=== PATIENT | female | born 1980 | race Caucasian/White ===

== ENCOUNTER 2016-06-06 22:20 | Emergency (ER) | payer MEDICAID, OTHER ==
[~2016-06-06] VITALS: Ht 165.1 cm; Wt 136.4 kg
[~2016-06-06 22:20] MED LIST: ARIP10TA14 PO; BUPR100SR PO; FISH1CAP49 PO; TOPI100 PO; TRI115O TP
[2016-06-06 22:38] LABS: BASOPHILS % (AUTO) 0.1 % (0.0-2.0); EOSINOPHILS % (AUTO) 2.1 % (1.0-6.0); HEMOGLOBIN 13.2 g/dL (12.0-16.0); LYMPHOCYTES # (AUTO) 2.3 K/uL (1.0-4.8); LYMPHOCYTES % (AUTO) 20.6 % (22.0-44.0); MEAN CORPUSCULAR HEMOGLOBIN 26.6 pg (26.0-34.0); MEAN CORPUSCULAR HGB CONC 32.3 G/dL (31.0-37.0); MEAN CORPUSCULAR VOLUME 82 fL (80-100); MONOCYTES # (AUTO) 0.6 K/uL (0.1-1.0); MONOCYTES % (AUTO) 5.3 % (2.0-9.0); NEUTROPHILS # (AUTO) 8.2 K/uL (1.8-7.7); NEUTROPHILS % (AUTO) 71.9 % (40.0-70.0); PLATELET COUNT (AUTO) 359 K/uL (150-450); RED BLOOD CELL COUNT(AUTO) 4.97 MIL/uL (4.00-5.20); RED CELL DISTRIBUTION WIDTH 15.2 % (11.5-14.5); WHITE BLOOD COUNT (AUTO) 11.3 K/uL (4.5-11.0)
[2016-06-06 22:45] LABS: ANION GAP 12 mmol/L (8-16); CALCIUM, TOTAL 8.8 mg/dL (8.8-10.5); CARBON DIOXIDE 25 mmol/L (22-29); CHLORIDE 104 mmol/L (98-107); CREATININE 0.97 mg/dL (0.60-1.30); GLOMERULAR FILTR. RATE CALC > 60 mL/min (>60); POTASSIUM 3.8 mmol/L (3.5-5.1); SODIUM SERUM 141 mmol/L (136-145); UREA NITROGEN, BLOOD 12 mg/dL (7-18)
[2016-06-06 22:50] LABS: ALANINE AMINOTRANSFERASE 26 U/L (12-78); ALBUMIN 3.7 g/dL (3.4-5.0); ASPARTATE AMINOTRANSFERASE 18 U/L (15-37); BILIRUBIN,TOTAL 0.4 mg/dL (0.1-1.0)
[2016-06-06 22:57] LABS: GLUCOSE,POINT OF CARE 155 MG/DL (70-110)
[2016-06-07] MEDS ORDERED: LORazepam 2 MG TABLET PO ONE (00:15)
[2016-06-07 00:25] VITALS: BP 142/73
[2016-09-13] MEDS ORDERED: HC530C TP (09:02)
[2016-09-13] MEDS ORDERED: METF500T4 PO (09:02)
[2016-09-13] MEDS ORDERED: [UNRECOGNIZED DRUG - CODE] TP (09:02)
[2016-09-13] MEDS ORDERED: NYST15CR2 TP (09:02)
[2016-09-13] MEDS ORDERED: VITAD1000 PO (09:02)
== END 2016-06-07 00:28 | disposition home or self-care (01) ==
LOC: EEVIPCON 22:20 → EMS 22:23
DX: F41.9 Anxiety disorder, unspecified (principal); F25.9 Schizoaffective disorder, unspecified; E78.00 Pure hypercholesterolemia, unspecified; I10 Essential (primary) hypertension
CPT/HCPCS: 36415; 80053; 80307; 82962; 84703; 85025; 99284; G0480

== ENCOUNTER 2016-06-11 09:26 | Inpatient (IN) | payer MEDICAID, OTHER ==
[~2016-06-11] VITALS: Ht 165.1 cm; Wt 157.4 kg
[2016-06-11] MEDS ORDERED: ZOLPIDEM TARTRATE 10 MG TABLET PO PRN (12:00)
[2016-06-11] MEDS ORDERED: HALOPERIDOL 5 MG TABLET PO PRN (12:00)
[2016-06-11 13:25] VITALS: BP_SYST 145
[2016-06-11 16:09] VITALS: BP 131/86
[2016-06-11 16:10] VITALS: BP 131/86
[2016-06-11] MEDS: TOPIRAMATE 100 MG TABLET PO SCH (17:10)
[2016-06-11] MEDS: TRIAMCINOLONE 0.1% 15 GM CREAM TP SCH (17:11)
[2016-06-12 01:21] VITALS: BP 138/73
[2016-06-12] MEDS: BuPROPion HCL 100 MG SR TABLET PO SCH (08:40)
[2016-06-12] MEDS: ARIPiprazole 10 MG TABLET PO SCH (08:40)
[2016-06-12] MEDS: TOPIRAMATE 100 MG TABLET PO SCH ×2 (08:40→16:16)
[2016-06-12] MEDS: TRIAMCINOLONE 0.1% 15 GM CREAM TP SCH (08:40)
[2016-06-12 08:50] VITALS: BP 115/72
[2016-06-12 08:53] LABS: BASOPHILS % (AUTO) 0.3 % (0.0-2.0); EOSINOPHILS % (AUTO) 3.4 % (1.0-6.0); HEMATOCRIT 39.9 % (36-46); HEMOGLOBIN 12.7 g/dL (12.0-16.0); LYMPHOCYTES # (AUTO) 1.7 K/uL (1.0-4.8); LYMPHOCYTES % (AUTO) 20.3 % (22.0-44.0); MEAN CORPUSCULAR HEMOGLOBIN 26.5 pg (26.0-34.0); MEAN CORPUSCULAR HGB CONC 31.8 G/dL (31.0-37.0); MEAN CORPUSCULAR VOLUME 83 fL (80-100); MONOCYTES # (AUTO) 0.5 K/uL (0.1-1.0); MONOCYTES % (AUTO) 5.4 % (2.0-9.0); NEUTROPHILS % (AUTO) 70.6 % (40.0-70.0); PLATELET COUNT (AUTO) 285 K/uL (150-450); RED CELL DISTRIBUTION WIDTH 15.2 % (11.5-14.5); WHITE BLOOD COUNT (AUTO) 8.5 K/uL (4.5-11.0)
[2016-06-12] MEDS ORDERED: IBUPROFEN 600 MG TABLET PO PRN (09:00)
[2016-06-12] MEDS ORDERED: BACITRACIN 28.4 GM OINTMENT TP PRN (09:00)
[2016-06-12] MEDS ORDERED: ONDANSETRON HCL 4 MG TABLET PO PRN (09:00)
[2016-06-12] MEDS: CLOBETASOL 0.05% 15 GM CREAM TP SCH ×2 (09:00→16:16)
[2016-06-12] MEDS ORDERED: CloNIDine HCL 0.1 MG TABLET PO PRN (09:00)
[2016-06-12] MEDS ORDERED: PETROLATUM,WHITE 71 GM JELLY TP PRN (09:00)
[2016-06-12] MEDS ORDERED: MAGNESIUM HYDROXIDE SUSPENSION 30 ML UDCUP PO PRN (09:00)
[2016-06-12] MEDS ORDERED: BENZOCAINE/MENTHOL LOZENGE MM PRN (09:00)
[2016-06-12] MEDS ORDERED: ALBUTEROL SULFATE HFA 90 MCG/PUFF 8 GM INHALER IH PRN (09:00)
[2016-06-12] MEDS ORDERED: ACETAMINOPHEN 325 MG TABLET PO PRN (09:00)
[2016-06-12] MEDS ORDERED: LOPERAMIDE HCL 2 MG CAPSULE PO PRN (09:00)
[2016-06-12] MEDS ORDERED: MAG HYDROX/AL HYDROX/SIMETH ES 30 ML SUSPENSION UDCUP PO PRN (09:00)
[2016-06-12 09:32] LABS: ALANINE AMINOTRANSFERASE 22 U/L (12-78); ALBUMIN 3.4 g/dL (3.4-5.0); ANION GAP 10 mmol/L (8-16); ASPARTATE AMINOTRANSFERASE 15 U/L (15-37); BILIRUBIN,TOTAL 0.3 mg/dL (0.1-1.0); CALCIUM, TOTAL 8.6 mg/dL (8.8-10.5); CARBON DIOXIDE 26 mmol/L (22-29); CHLORIDE 104 mmol/L (98-107); CHOL/HDL RATIO 3.8 (3.9-5.7); CREATININE 0.72 mg/dL (0.60-1.30); GLOMERULAR FILTR. RATE CALC > 60 mL/min (>60); POTASSIUM 4.2 mmol/L (3.5-5.1); SODIUM SERUM 140 mmol/L (136-145); THYROID STIMULATING HORMONE 2.87 uIU/mL (0.36-3.74); TOTAL PROTEIN, SERUM 6.9 g/dL (6.4-8.2); UREA NITROGEN, BLOOD 9 mg/dL (7-18)
[2016-06-12] MEDS: FISH OIL/OMEGA-3 FATTY ACIDS 500 MG CAPSULE PO SCH (10:42)
[2016-06-12 16:14] VITALS: BP 141/83
[2016-06-12] MEDS: LORazepam 2 MG TABLET PO PRN (18:36)
[2016-06-13 00:19] VITALS: BP 140/88
[2016-06-13 08:14] VITALS: BP 137/87
[2016-06-13] MEDS: ARIPiprazole 10 MG TABLET PO SCH (08:29)
[2016-06-13] MEDS: BuPROPion HCL 100 MG SR TABLET PO SCH (08:29)
[2016-06-13] MEDS: FISH OIL/OMEGA-3 FATTY ACIDS 500 MG CAPSULE PO SCH (08:29)
[2016-06-13] MEDS: TOPIRAMATE 100 MG TABLET PO SCH ×2 (08:29→16:24)
[2016-06-13] MEDS: CLOBETASOL 0.05% 15 GM CREAM TP SCH ×2 (08:30→16:25)
[2016-06-13 16:04] VITALS: BP 157/103
[2016-06-14 06:15] VITALS: BP 130/89
[2016-06-14] MEDS: CLOBETASOL 0.05% 15 GM CREAM TP SCH ×2 (08:52→16:19)
[2016-06-14] MEDS: ARIPiprazole 10 MG TABLET PO SCH (08:52)
[2016-06-14] MEDS: TOPIRAMATE 100 MG TABLET PO SCH ×2 (08:52→16:02)
[2016-06-14] MEDS: FISH OIL/OMEGA-3 FATTY ACIDS 500 MG CAPSULE PO SCH (08:52)
[2016-06-14] MEDS: BuPROPion HCL 100 MG SR TABLET PO SCH (08:52)
[2016-06-14 10:03] VITALS: BP 136/88
[2016-06-14 16:06] VITALS: BP 135/78
[2016-06-15 00:28] VITALS: BP 130/68
[2016-06-15] MEDS: FISH OIL/OMEGA-3 FATTY ACIDS 500 MG CAPSULE PO SCH (08:21)
[2016-06-15] MEDS: TOPIRAMATE 100 MG TABLET PO SCH ×2 (08:21→16:04)
[2016-06-15] MEDS: BuPROPion HCL 100 MG SR TABLET PO SCH (08:21)
[2016-06-15] MEDS: CHOLECALCIFEROL (VIT D3) 1,000 UNITS TABLET PO SCH (08:21)
[2016-06-15] MEDS: ARIPiprazole 10 MG TABLET PO SCH (08:21)
[2016-06-15] MEDS: CLOBETASOL 0.05% 15 GM CREAM TP SCH ×2 (08:22→16:04)
[2016-06-15 08:32] VITALS: BP 149/84
[2016-06-15 19:41] VITALS: BP 140/80
[2016-06-16] MEDS: LORazepam 2 MG TABLET PO PRN (01:30)
[2016-06-16 01:31] VITALS: BP 136/89
[2016-06-16 08:06] VITALS: BP 135/72
[2016-06-16] MEDS: FISH OIL/OMEGA-3 FATTY ACIDS 500 MG CAPSULE PO SCH (08:32)
[2016-06-16] MEDS: BuPROPion HCL 100 MG SR TABLET PO SCH (08:32)
[2016-06-16] MEDS: CHOLECALCIFEROL (VIT D3) 1,000 UNITS TABLET PO SCH (08:32)
[2016-06-16] MEDS: ARIPiprazole 10 MG TABLET PO SCH (08:32)
[2016-06-16] MEDS: TOPIRAMATE 100 MG TABLET PO SCH (08:33)
[2016-06-16] MEDS: CLOBETASOL 0.05% 15 GM CREAM TP SCH (08:34)
[2016-06-16] MEDS ORDERED: TEMO15O TP (09:44)
== END 2016-06-16 12:10 | disposition home or self-care (01) | DRG 750 ==
LOC: B2S 11:50 → EDSTATUS 11:57
PROVIDERS: ADMIT Psychiatry & Neurology Psychiatry; ATTEND Psychiatry & Neurology Psychiatry
DX: F20.0 Paranoid schizophrenia (principal); Z68.43 Body mass index [BMI] 50.0-59.9, adult; I10 Essential (primary) hypertension; F25.9 Schizoaffective disorder, unspecified; E66.01 Morbid (severe) obesity due to excess calories; E58 Dietary calcium deficiency; E78.1 Pure hyperglyceridemia; K21.9 Gastro-esophageal reflux disease without esophagitis; K59.00 Constipation, unspecified; L20.9 Atopic dermatitis, unspecified; E78.5 Hyperlipidemia, unspecified; Z79.899 Other long term (current) drug therapy
CPT/HCPCS: 82306; 84439; 84443

== ENCOUNTER 2016-06-28 08:28 | Inpatient (IN) | payer MEDICAID ==
[~2016-06-28] VITALS: Ht 170.2 cm; Wt 152.3 kg
[~2016-06-28 08:28] MED LIST changes: +TEMO15O TP; -TRI115O TP
[2016-06-28 09:00] VITALS: BP 119/85
[2016-06-28] MEDS ORDERED: HALOPERIDOL 5 MG TABLET PO PRN (09:15)
[2016-06-28] MEDS ORDERED: ZOLPIDEM TARTRATE 10 MG TABLET PO PRN (09:15)
[2016-06-28 10:01] VITALS: BP 163/92
[2016-06-28] MEDS: LORazepam 2 MG TABLET PO PRN (10:54)
[2016-06-28 11:16] VITALS: BP 129/77
[2016-06-28 11:56] LABS: GLUCOSE,POINT OF CARE 146 MG/DL (70-110)
[2016-06-28 16:00] VITALS: BP 143/78
[2016-06-28] MEDS: CLOBETASOL 0.05% 15 GM OINTMENT TP SCH (16:33)
[2016-06-29 08:45] LABS: BASOPHILS % (AUTO) 0.2 % (0.0-2.0); EOSINOPHILS % (AUTO) 2.4 % (1.0-6.0); HEMATOCRIT 39.5 % (36-46); HEMOGLOBIN 12.6 g/dL (12.0-16.0); LYMPHOCYTES # (AUTO) 1.6 K/uL (1.0-4.8); LYMPHOCYTES % (AUTO) 15.8 % (22.0-44.0); MEAN CORPUSCULAR HEMOGLOBIN 26.5 pg (26.0-34.0); MEAN CORPUSCULAR HGB CONC 31.9 G/dL (31.0-37.0); MEAN CORPUSCULAR VOLUME 83 fL (80-100); MONOCYTES # (AUTO) 0.5 K/uL (0.1-1.0); MONOCYTES % (AUTO) 4.5 % (2.0-9.0); NEUTROPHILS # (AUTO) 7.8 K/uL (1.8-7.7); NEUTROPHILS % (AUTO) 77.1 % (40.0-70.0); PLATELET COUNT (AUTO) 319 K/uL (150-450); RED BLOOD CELL COUNT(AUTO) 4.75 MIL/uL (4.00-5.20); RED CELL DISTRIBUTION WIDTH 14.8 % (11.5-14.5); WHITE BLOOD COUNT (AUTO) 10.2 K/uL (4.5-11.0)
[2016-06-29] MEDS ORDERED: BACITRACIN 28.4 GM OINTMENT TP PRN (08:45)
[2016-06-29] MEDS ORDERED: IBUPROFEN 600 MG TABLET PO PRN (08:45)
[2016-06-29] MEDS ORDERED: MAG HYDROX/AL HYDROX/SIMETH ES 30 ML SUSPENSION UDCUP PO PRN (08:45)
[2016-06-29] MEDS ORDERED: ALBUTEROL SULFATE HFA 90 MCG/PUFF 8 GM INHALER IH PRN (08:45)
[2016-06-29] MEDS ORDERED: ONDANSETRON HCL 4 MG TABLET PO PRN (08:45)
[2016-06-29] MEDS ORDERED: MAGNESIUM HYDROXIDE SUSPENSION 30 ML UDCUP PO PRN (08:45)
[2016-06-29] MEDS ORDERED: PETROLATUM,WHITE 71 GM JELLY TP PRN (08:45)
[2016-06-29] MEDS ORDERED: ACETAMINOPHEN 325 MG TABLET PO PRN (08:45)
[2016-06-29] MEDS ORDERED: LOPERAMIDE HCL 2 MG CAPSULE PO PRN (08:45)
[2016-06-29] MEDS ORDERED: CloNIDine HCL 0.1 MG TABLET PO PRN (08:45)
[2016-06-29] MEDS ORDERED: BENZOCAINE/MENTHOL LOZENGE MM PRN (08:45)
[2016-06-29 08:46] LABS: APPEARANCE,URINE CLEAR (CLEAR); GLUCOSE, URINE (UA) NEGATIVE (NEGATIVE); KETONES,URINE NEGATIVE (NEGATIVE); LEUKOCYTE ESTERASE ,URINE NEGATIVE (NEGATIVE); OCCULT BLOOD,URINE TRACE (NEGATIVE); PROTEIN,URINE NEGATIVE (NEGATIVE)
[2016-06-29 08:47] VITALS: BP 151/92
[2016-06-29] MEDS: BuPROPion HCL 100 MG SR TABLET PO SCH (08:56)
[2016-06-29] MEDS: ARIPiprazole 10 MG TABLET PO SCH (08:56)
[2016-06-29] MEDS: TOPIRAMATE 100 MG TABLET PO SCH ×2 (08:56→16:24)
[2016-06-29] MEDS: FISH OIL/OMEGA-3 FATTY ACIDS 500 MG CAPSULE PO SCH (08:56)
[2016-06-29] MEDS: CLOBETASOL 0.05% 15 GM OINTMENT TP SCH ×2 (08:57→16:25)
[2016-06-29] MEDS: ATENOLOL 25 MG TABLET PO SCH (09:00)
[2016-06-29] MEDS: OMEPRAZOLE 20 MG CAPSULE PO SCH (09:02)
[2016-06-29] MEDS: DOCUSATE SODIUM 100 MG CAPSULE PO SCH (09:02)
[2016-06-29 09:10] LABS: ADD UA MICROSCOPIC YES
[2016-06-29 09:14] LABS: RBC,URINE 0-2 /HPF (0-2); SQUAMOUS EPITHELIAL CELL,UR Rare /LPF (None Seen); WBC,URINE 0-2 /HPF (0-5)
[2016-06-29] MEDS: LORazepam 2 MG TABLET PO PRN (09:20)
[2016-06-29 10:49] LABS: ALANINE AMINOTRANSFERASE 21 U/L (12-78); ALBUMIN 3.3 g/dL (3.4-5.0); ANION GAP 13 mmol/L (8-16); ASPARTATE AMINOTRANSFERASE 19 U/L (15-37); BILIRUBIN,TOTAL 0.3 mg/dL (0.1-1.0); CALCIUM, TOTAL 8.7 mg/dL (8.8-10.5); CARBON DIOXIDE 23 mmol/L (22-29); CHLORIDE 104 mmol/L (98-107); CREATININE 0.92 mg/dL (0.60-1.30); GLOMERULAR FILTR. RATE CALC > 60 mL/min (>60); POTASSIUM 3.7 mmol/L (3.5-5.1); SODIUM SERUM 140 mmol/L (136-145); TOTAL PROTEIN, SERUM 7.3 g/dL (6.4-8.2); UREA NITROGEN, BLOOD 16 mg/dL (7-18)
[2016-06-29 16:11] VITALS: BP 140/98
[2016-06-30 00:10] VITALS: BP 123/65
[2016-06-30 08:10] VITALS: BP 131/71
[2016-06-30] MEDS: ARIPiprazole 10 MG TABLET PO SCH (08:55)
[2016-06-30] MEDS: TOPIRAMATE 100 MG TABLET PO SCH ×2 (08:55→16:10)
[2016-06-30] MEDS: CLOBETASOL 0.05% 15 GM OINTMENT TP SCH ×2 (08:55→16:11)
[2016-06-30] MEDS: FISH OIL/OMEGA-3 FATTY ACIDS 500 MG CAPSULE PO SCH (08:56)
[2016-06-30] MEDS: OMEPRAZOLE 20 MG CAPSULE PO SCH (08:56)
[2016-06-30] MEDS: ATENOLOL 25 MG TABLET PO SCH (08:56)
[2016-06-30] MEDS: DOCUSATE SODIUM 100 MG CAPSULE PO SCH (08:56)
[2016-06-30] MEDS: BuPROPion HCL 100 MG SR TABLET PO SCH (08:56)
[2016-06-30 16:29] VITALS: BP 135/72
[2016-06-30] MEDS ORDERED: GLUCAGON,HUMAN RECOMBINANT 1 MG VIAL IM PRN (20:45)
[2016-06-30] MEDS: INSULIN ASPART 100 UNITS/ML SQ PRN (21:11)
[2016-06-30 21:12] LABS: GLUCOSE COMMENT 1 Received Meds; GLUCOSE,POINT OF CARE 158 MG/DL (70-110)
[2016-07-01 00:06] VITALS: BP 124/60
[2016-07-01 06:27] LABS: GLUCOSE,POINT OF CARE 143 MG/DL (70-110)
[2016-07-01] MEDS: MetFORMIN HCL 500 MG TABLET PO SCH ×2 (06:48→16:36)
[2016-07-01] MEDS: INSULIN ASPART 100 UNITS/ML SQ PRN (07:17)
[2016-07-01] MEDS: DOCUSATE SODIUM 100 MG CAPSULE PO SCH (08:52)
[2016-07-01] MEDS: ATENOLOL 25 MG TABLET PO SCH (08:52)
[2016-07-01] MEDS: ARIPiprazole 10 MG TABLET PO SCH (08:52)
[2016-07-01] MEDS: FISH OIL/OMEGA-3 FATTY ACIDS 500 MG CAPSULE PO SCH (08:52)
[2016-07-01] MEDS: OMEPRAZOLE 20 MG CAPSULE PO SCH (08:52)
[2016-07-01] MEDS: BuPROPion HCL 100 MG SR TABLET PO SCH (08:52)
[2016-07-01] MEDS: CLOBETASOL 0.05% 15 GM OINTMENT TP SCH ×2 (08:53→16:38)
[2016-07-01] MEDS: TOPIRAMATE 100 MG TABLET PO SCH ×2 (08:55→16:36)
[2016-07-01 09:11] VITALS: BP 129/64
[2016-07-01 11:21] LABS: GLUCOSE,POINT OF CARE 111 MG/DL (70-110)
[2016-07-01 16:00] VITALS: BP 135/75
[2016-07-01 20:57] LABS: GLUCOSE COMMENT 1 Received Meds; GLUCOSE,POINT OF CARE 133 MG/DL (70-110)
[2016-07-01 20:57] LABS: GLUCOSE,POINT OF CARE 128 MG/DL (70-110)
[2016-07-02 00:09] VITALS: BP 116/89
[2016-07-02 06:00] VITALS: BP 148/95
[2016-07-02 06:07] LABS: GLUCOSE,POINT OF CARE 124 MG/DL (70-110)
[2016-07-02] MEDS: MetFORMIN HCL 500 MG TABLET PO SCH ×2 (06:44→16:50)
[2016-07-02 08:40] VITALS: BP 128/73
[2016-07-02] MEDS: ARIPiprazole 10 MG TABLET PO SCH (09:19)
[2016-07-02] MEDS: ATENOLOL 25 MG TABLET PO SCH (09:19)
[2016-07-02] MEDS: TOPIRAMATE 100 MG TABLET PO SCH ×2 (09:20→16:50)
[2016-07-02] MEDS: DOCUSATE SODIUM 100 MG CAPSULE PO SCH (09:20)
[2016-07-02] MEDS: OMEPRAZOLE 20 MG CAPSULE PO SCH (09:20)
[2016-07-02] MEDS: BuPROPion HCL 100 MG SR TABLET PO SCH (09:21)
[2016-07-02] MEDS: CLOBETASOL 0.05% 15 GM OINTMENT TP SCH ×2 (09:21→17:21)
[2016-07-02] MEDS: FISH OIL/OMEGA-3 FATTY ACIDS 500 MG CAPSULE PO SCH (09:28)
[2016-07-02 16:10] VITALS: BP 119/66
[2016-07-02 16:57] LABS: GLUCOSE,POINT OF CARE 120 MG/DL (70-110)
[2016-07-02 21:12] LABS: GLUCOSE,POINT OF CARE 116 MG/DL (70-110)
[2016-07-03 06:01] LABS: GLUCOSE,POINT OF CARE 129 MG/DL (70-110)
[2016-07-03 06:34] VITALS: BP 120/63
[2016-07-03] MEDS: MetFORMIN HCL 500 MG TABLET PO SCH ×2 (06:40→16:17)
[2016-07-03] MEDS: TOPIRAMATE 100 MG TABLET PO SCH ×2 (08:11→16:18)
[2016-07-03] MEDS: ARIPiprazole 10 MG TABLET PO SCH (08:11)
[2016-07-03] MEDS: OMEPRAZOLE 20 MG CAPSULE PO SCH (08:11)
[2016-07-03] MEDS: FISH OIL/OMEGA-3 FATTY ACIDS 500 MG CAPSULE PO SCH (08:11)
[2016-07-03] MEDS: ATENOLOL 25 MG TABLET PO SCH (08:11)
[2016-07-03] MEDS: DOCUSATE SODIUM 100 MG CAPSULE PO SCH (08:11)
[2016-07-03] MEDS: BuPROPion HCL 100 MG SR TABLET PO SCH (08:11)
[2016-07-03] MEDS: CLOBETASOL 0.05% 15 GM OINTMENT TP SCH ×2 (08:13→16:17)
[2016-07-03] MEDS: HYDROCORTISONE 0.5% 30 GM CREAM TP SCH ×2 (08:13→16:17)
[2016-07-03 09:01] VITALS: BP 108/54
[2016-07-03 14:24] VITALS: BP 134/83
[2016-07-03 15:31] LABS: GLUCOSE COMMENT 1 Received Meds; GLUCOSE,POINT OF CARE 120 MG/DL (70-110)
[2016-07-03 16:00] VITALS: BP 136/69
[2016-07-03 16:56] LABS: GLUCOSE,POINT OF CARE 121 MG/DL (70-110)
[2016-07-03 21:31] LABS: GLUCOSE,POINT OF CARE 123 MG/DL (70-110)
[2016-07-04 06:22] LABS: GLUCOSE,POINT OF CARE 142 MG/DL (70-110)
[2016-07-04] MEDS: MetFORMIN HCL 500 MG TABLET PO SCH ×2 (06:37→16:50)
[2016-07-04 06:47] VITALS: BP 138/76
[2016-07-04] MEDS: INSULIN ASPART 100 UNITS/ML SQ PRN ×2 (06:51→11:45)
[2016-07-04 08:44] VITALS: BP 112/60
[2016-07-04] MEDS: ARIPiprazole 10 MG TABLET PO SCH (09:21)
[2016-07-04] MEDS: ATENOLOL 25 MG TABLET PO SCH (09:21)
[2016-07-04] MEDS: TOPIRAMATE 100 MG TABLET PO SCH ×2 (09:21→16:50)
[2016-07-04] MEDS: HYDROCORTISONE 0.5% 30 GM CREAM TP SCH ×2 (09:21→16:50)
[2016-07-04] MEDS: FISH OIL/OMEGA-3 FATTY ACIDS 500 MG CAPSULE PO SCH (09:21)
[2016-07-04] MEDS: DOCUSATE SODIUM 100 MG CAPSULE PO SCH (09:21)
[2016-07-04] MEDS: OMEPRAZOLE 20 MG CAPSULE PO SCH (09:21)
[2016-07-04] MEDS: BuPROPion HCL 100 MG SR TABLET PO SCH (09:21)
[2016-07-04] MEDS: CLOBETASOL 0.05% 15 GM OINTMENT TP SCH ×2 (09:22→16:50)
[2016-07-04 11:41] LABS: GLUCOSE,POINT OF CARE 144 MG/DL (70-110)
[2016-07-04 16:00] VITALS: BP 126/67
[2016-07-04 16:47] LABS: GLUCOSE COMMENT 1 Received Meds; GLUCOSE,POINT OF CARE 138 MG/DL (70-110)
[2016-07-04 23:11] LABS: GLUCOSE,POINT OF CARE 128 MG/DL (70-110)
[2016-07-05 06:26] LABS: GLUCOSE,POINT OF CARE 134 MG/DL (70-110)
[2016-07-05 06:29] VITALS: BP 125/88
[2016-07-05] MEDS: MetFORMIN HCL 500 MG TABLET PO SCH (06:41)
[2016-07-05 08:09] VITALS: BP 115/84
[2016-07-05] MEDS: TOPIRAMATE 100 MG TABLET PO SCH (08:56)
[2016-07-05] MEDS: FISH OIL/OMEGA-3 FATTY ACIDS 500 MG CAPSULE PO SCH (08:56)
[2016-07-05] MEDS: BuPROPion HCL 100 MG SR TABLET PO SCH (08:56)
[2016-07-05] MEDS: DOCUSATE SODIUM 100 MG CAPSULE PO SCH (08:56)
[2016-07-05] MEDS: OMEPRAZOLE 20 MG CAPSULE PO SCH (08:56)
[2016-07-05] MEDS: ARIPiprazole 10 MG TABLET PO SCH (08:56)
[2016-07-05] MEDS: ATENOLOL 25 MG TABLET PO SCH (08:56)
[2016-07-05] MEDS: HYDROCORTISONE 0.5% 30 GM CREAM TP SCH (08:57)
[2016-07-05] MEDS: CLOBETASOL 0.05% 15 GM OINTMENT TP SCH (08:57)
[2016-07-05 11:43] LABS: GLUCOSE,POINT OF CARE 124 MG/DL (70-110)
[2016-07-05] MEDS ORDERED: ATEN25 PO (13:56)
[2016-07-05] MEDS ORDERED: DSS100 PO (13:56)
[2016-07-05] MEDS ORDERED: OMEP20 PO (13:56)
[2016-09-13] MEDS ORDERED: NYST15CR2 TP (09:02)
[2016-09-13] MEDS ORDERED: [UNRECOGNIZED DRUG - CODE] TP (09:02)
[2016-09-13] MEDS ORDERED: HC530C TP (09:02)
[2016-09-13] MEDS ORDERED: METF500T4 PO (09:02)
[2016-09-13] MEDS ORDERED: VITAD1000 PO (09:02)
== END 2016-07-05 14:10 | disposition home or self-care (01) | DRG 750 ==
LOC: B3A 09:12 → EDSTATUS 09:23 → B2S 06-29 10:14
PROVIDERS: ADMIT Psychiatry & Neurology Psychiatry; ATTEND Psychiatry & Neurology Psychiatry
DX: F20.0 Paranoid schizophrenia (principal); Z68.43 Body mass index [BMI] 50.0-59.9, adult; I10 Essential (primary) hypertension; E55.9 Vitamin D deficiency, unspecified; E66.01 Morbid (severe) obesity due to excess calories; E78.5 Hyperlipidemia, unspecified; K21.9 Gastro-esophageal reflux disease without esophagitis; R73.9 Hyperglycemia, unspecified; K59.00 Constipation, unspecified; L25.9 Unspecified contact dermatitis, unspecified cause; Z59.0 Homelessness; Z79.899 Other long term (current) drug therapy
CPT/HCPCS: 80307; 82962; 83036; 87081